=== PATIENT | female | born 1940 | race Caucasian/White ===

== ENCOUNTER 2019-06-03 19:15 | Outpatient (RCR) | payer MEDICARE, MEDICAID, SELFPAY | END 2019-06-25 00:01 | LOC: LAB 19:15 | DX: N39.0 Urinary tract infection, site not specified (principal); I10 Essential (primary) hypertension; E11.8 Type 2 diabetes mellitus with unspecified complications | CPT/HCPCS: 81001; 87077; 87086 ×2; 87186 ==